=== PATIENT | male | born 1975 | race Caucasian/White ===

== ENCOUNTER → 2020-01-19 11:12 | Outpatient (BNVA) | payer MEDICAID, SELFPAY | PROVIDERS: Visit Provider Internal Medicine Rheumatology | DX: M19.90 Unspecified osteoarthritis, unspecified site (principal); Z11.59 Encounter for screening for other viral diseases; K50.918 Crohn's disease, unspecified, with other complication; L40.0 Psoriasis vulgaris; Z79.899 Other long term (current) drug therapy; G89.29 Other chronic pain; M54.5 Low back pain; R74.0 Nonspecific elevation of levels of transaminase and lactic acid dehydrogenase [LDH]; Z72.89 Other problems related to lifestyle | CPT/HCPCS: 36415; 99204 ==

== ENCOUNTER 2020-01-19 15:14 | Outpatient (CLI) | payer MEDICAID, SELFPAY ==
--- NOTE | 2020-01-19 15:21 | XR_ITS ---
WS: [id number] HAND LEFT TECHNIQUE: 3 views of the left hand CLINICAL INFORMATION: inflammatory arthritis COMPARISON: None. FINDINGS: Normal metacarpals. Normal MCP joint. Metacarpal heads are normal in appearance. Normal PIP and DIP j oints. No evidence of acute fracture or dislocation. Radiocarpal joint: Normal. Carpal bones: Normal. XR/XR hand LT min 3V* [id number] IMPRESSION: Normal left hand.
--- NOTE | 2020-01-19 15:21 | XR_ITS ---
WS: [id number] HAND RIGHT TECHNIQUE: 3 views of the right hand CLINICAL INFORMATION: inflammatory arthritis COMPARISON: None. FINDINGS: Normal metacarpals. Normal MCP joint. Metacarpal heads are normal in appearance. Normal PIP and DIP j oints. No evidence of acute fracture or dislocation. Radiocarpal joint: Normal. Carpal bones: Normal. XR/XR hand RT min 3V* [id number] IMPRESSION: Normal right hand.
--- NOTE | 2020-01-19 15:21 | XR_ITS ---
WS: [id number] FOOT LEFT TECHNIQUE: 3 views of the left foot CLINICAL INFORMATION: inflammatory arthritis COMPARISON: None. FINDINGS: No evidence of acute fracture or dislocation. Normal tarsal metatarsal alignment. Normal calcaneus. N ormal visualized talar dome. Achilles insertion enthesophyte XR/XR foot LT min 3V* [id number] IMPRESSION: Achilles insertion enthesophyte. No erosive changes.
--- NOTE | 2020-01-19 15:21 | XR_ITS ---
WS: [id number] PROCEDURE: XR chest 2V* [id number] CLINICAL INFORMATION: inflammatory arthritis COMPARISON: None. FINDINGS: Heart: Normal cardiac silhouette. Lungs: Lungs are clear. No consolidation or pleural fluid. Bones: Normal visualized bony structures. XR/XR chest 2V* [id number] IMPRESSION: Normal chest
--- NOTE | 2020-01-19 15:21 | XR_ITS ---
WS: [id number] PELVIS TECHNIQUE: 1 view(s) of the pelvis CLINICAL INFORMATION: inflammatory arthritis COMPARISON: None. FINDINGS: Visualized hips are normal in appearance. Normal acetabulum. Lower lumbar spine is normal. Inferior a nd superior pubic rami are normal. Normal iliopectineal line. Sacrum is normal in appearance. XR/XR pelvis 1-2V* [id number] IMPRESSION: Normal pelvis.
--- NOTE | 2020-01-19 15:21 | XR_ITS ---
WS: [id number] FOOT RIGHT TECHNIQUE: 3 views of the right foot CLINICAL INFORMATION: inflammatory arthritis COMPARISON: None. FINDINGS: No evidence of acute fracture or dislocation. Normal tarsal metatarsal alignment. Normal calcaneus. N ormal visualized talar dome. No acute findings. XR/XR foot RT min 3V* [id number] IMPRESSION: Normal right foot.
== END 2020-01-19 15:15 | disposition home or self-care (01) ==
LOC: RADWPI 15:21
PROVIDERS: Visit Provider Internal Medicine Rheumatology
DX: M19.90 Unspecified osteoarthritis, unspecified site (principal)
CPT/HCPCS: 71046; 72170; 73130; 73630; 80076; 82306; 82565; 84550; 85025; 85651; 86140; 86431; 86704; 86803; 86812; 87340

== ENCOUNTER → 2020-02-08 11:40 | Outpatient (BNVA) | payer MEDICAID, SELFPAY | PROVIDERS: PCP Family Medicine; Visit Provider Internal Medicine Rheumatology | DX: M19.90 Unspecified osteoarthritis, unspecified site (principal); Z79.899 Other long term (current) drug therapy; L40.0 Psoriasis vulgaris; K50.918 Crohn's disease, unspecified, with other complication; R74.0 Nonspecific elevation of levels of transaminase and lactic acid dehydrogenase [LDH] | CPT/HCPCS: 99214 ==

== ENCOUNTER → 2020-02-24 11:26 | Outpatient (BNVA) | payer MEDICAID, SELFPAY | PROVIDERS: PCP Family Medicine; Visit Provider Dermatology | DX: B35.4 Tinea corporis (principal); L81.2 Freckles; Q27.8 Other specified congenital malformations of peripheral vascular system | CPT/HCPCS: 11102; 87220; 99203; 99204 ==

== ENCOUNTER → 2020-04-10 11:12 | Outpatient (BNVA) | payer MEDICAID, SELFPAY | PROVIDERS: PCP Family Medicine; Visit Provider Dermatology | DX: B35.4 Tinea corporis (principal) | CPT/HCPCS: 99213 ==